=== PATIENT | female | born 1960 | race Two or more races ===

== ENCOUNTER 2019-05-20 14:55 | Emergency (ER) | payer BC ==
--- NOTE | 2019-05-20 16:24 | ED ---
Head Injury - HPI Summary HPI Summary: Pt is a 59-year-old female who presents emergency department for head injury that occurred about 4 hours ago. Patient states she was fixing a flag pole when she slipped on an uneven cinderblock block and fell backwards striking her head on the cinderblock. Patient fell from standing. She denies loss of consciousness. Patient denies any other injuries except laceration to the back of her head. Patient denies headache, vision changes, nausea, vomiting, numbness, tingling or weakness. Patient states last tetanus immunization was within 5 years. Symptoms are [id number] in severity. No current modifying factors. Patient is not anticoagulated. - History Of Current Complaint Chief Complaint: EDLacSutureRecheck Stated Complaint: HEAD LAC PER PT Time Seen by Provider: 05/20/19 15:39 Hx Obtained From: Patient Pain Intensity: 0 - Allergies/Home Medications Allergies/Adverse Reactions: Allergies Allergy/AdvReac Type Severity Reaction Status Date / Time MS Aspartame [Aspartame] Allergy Palpitation Verified 07/15/15 12:23 s MS Morphine [Morphine] Allergy Vomiting Verified 07/15/15 12:23 ENVIRONMENTAL/SEASONAL Allergy Congestion Uncoded 07/15/15 12:23 HAYFEVER PMH/Surg Hx/FS Hx/Imm Hx Previously Healthy: Yes Endocrine/Hematology History: Reports: Hx Anemia - HX PHLEBITIS RIGHT LEG 2013 Cardiovascular History: Reports: Hx Coronary Artery Disease - CHOLESTEROL CONTROL WITH MEDS, Hx Hypertension - CONTROL WITH MED, Hx Peripheral Vascular Disease - RIGHT LEG VARICOSE VEINS, Other Cardiovascular Problems/Disorders - RECENT SUPERFICIAL THROMBOPHLEBITIS RIGHT LEG, SURGEON AWARE Respiratory History: Reports: Hx Asthma - A CHILD GI History: Reports: Hx Gastroesophageal Reflux Disease Sensory History: Reports: Hx Contacts or Glasses - GLASSES Denies: Hx Hearing Aid Opthamlomology History: Reports: Hx Contacts or Glasses - GLASSES - Surgical History Surgery Procedure, Year, and Place: 1985 RIGHT ANKLE ORIF [facility] [place]. 1998 HYSTERECTOMY, [facility] [place]. 2003 BILATERAL OOPHERECTOMY, [facility] [place]. 2010 BENIGN LEFT PAROTID TUMOR EXC [facility] [place]. 2013 RIGHT LEG VARICOSE VEIN SURGERY [facility] [place] Hx Anesthesia Reactions: No Infectious Disease History: No Infectious Disease History: Denies: Traveled Outside the [place] in Last 30 Days - Social History Alcohol Use: Rare Substance Use Type: Reports: None Smoking Status (MU): Never Smoked Tobacco Review of Systems Eyes: Negative Cardiovascular: Negative Respiratory: Negative Gastrointestinal: Negative Negative: Vomiting, Nausea Musculoskeletal: Negative Positive: Other - scalp laceration Neurological: Negative Negative: Headache, Weakness, Paresthesia, Numbness, Syncope All Other Systems Reviewed And Are Negative: Yes Physical Exam Triage Information Reviewed: Yes Vital Signs On Initial Exam: Initial Vitals Temp Pulse Resp BP Pulse Ox 97.0 F 80 18 162/91 97 05/20/19 15:04 05/20/19 15:04 05/20/19 15:04 05/20/19 15:04 05/20/19 15:04 Vital Signs Reviewed: Yes Appearance: Positive: Well-Appearing - Pt. sitting up in bed in NAD. Pleasant. Friend present. Skin: Positive: Warm, Dry Head/Face: Positive: Other - 5cm laceration noted to posterior scalp. No palpable skull deformity. No rutledge sign or racoon eyes. Eyes: Positive: Normal, EOMI, DIANA, Conjunctiva Clear Neck: Positive: Supple, Nontender - No midline tenderness. Full ROM without pain. Musculoskeletal: Positive: Normal, Strength/ROM Intact Neurological: Positive: Normal, Alert, Oriented to Person Place, Time, CN Intact II-III, Normal Gait Psychiatric: Positive: Affect/Mood Appropriate Procedures - Laceration/Wound Repair 1 Location: head Description: Linear Anesthesia: Local, 1.0%, Lido Length, Depth and Shape: 5cm linear Betadine Prep?: No - hibiclens Irrigated w/ Saline (ccs): 100 Laceration/Wound Explored: clean Closure: Shmuel #__ - 5 Layer Closure?: No Sterile Dressing Applied?: No Diagnostics - Vital Signs Vital Signs Temp Pulse Resp BP Pulse Ox 05/20/19 15:04 97.0 F 80 18 162/91 97 - Laboratory Lab Statement: Any lab studies that have been ordered have been reviewed, and results considered in the medical decision making process. Head Injury Course/Dx Course Of Treatment: Pt. with posterior laceration after falling from standing. No neuro deficits on exam or evidence of bleed or skull fx. Based on [place] head ct rules, head ct is not indicated. Pt. agrees with no imaging. Wound was cleaned and stapled as noted above. Staple removal in 5 days. To ice, tylenol or motrin for pain. Pt. given return precautions. Pt. understands and agrees with plan. - Diagnoses Differential Diagnosis/HQI/PQRI: Concussion Without LOC, Intracranial Bleed, Skull Fracture Provider Diagnoses: Scalp laceration, Head injury Discharge ED - Sign-Out/Discharge Documenting (check all that apply): Patient Departure Patient Received Moderate/Deep Sedation with Procedure: No - Discharge Plan Condition: Good Disposition: HOME Patient Education Materials: Head Injury (ED), Staple Care (ED) Referrals: Mehrdad Davalos MD [Primary Care Provider] - Additional Instructions: Staple removal in 5 days Keep wound clean and dry Ice intermittently Tylenol or Motrin for pain as directed Return to ER for severe headache, vomiting, or if concerned - Billing Disposition and Condition Condition: GOOD Disposition: Home
[2019-05-20] MEDS: Lidocaine 1% MPF ** 5 ML VIAL INJ ONE (16:53)
[2019-05-20 17:34] VITALS: BP 157/87
== END 2019-05-20 17:30 | disposition home or self-care (01) ==
LOC: ED 14:55
DX: S01.01XA Laceration without foreign body of scalp, initial encounter (principal); W19.XXXA Unspecified fall, initial encounter; Y92.9 Unspecified place or not applicable; D64.9 Anemia, unspecified; I25.10 Atherosclerotic heart disease of native coronary artery without angina pectoris; I10 Essential (primary) hypertension; K21.9 Gastro-esophageal reflux disease without esophagitis; Z79.82 Long term (current) use of aspirin; Z79.899 Other long term (current) drug therapy; Z88.5 Allergy status to narcotic agent
CPT/HCPCS: 12001; 99282

== ENCOUNTER 2019-05-25 18:38 | Emergency (ER) | payer BC ==
[2019-05-25 18:50] VITALS: BP 156/101
== END 2019-05-25 20:01 | disposition left against medical advice (07) ==
LOC: ED 18:38
DX: Z53.21 Procedure and treatment not carried out due to patient leaving prior to being seen by health care provider (principal)
CPT/HCPCS: 99282